=== PATIENT | female | born 1990 | race Caucasian/White ===

== ENCOUNTER 2016-04-07 06:00 | Day surgery (SDC) | payer MEDICAID ==
[2016-04-06 19:33] LABS: HCG,QUAL RESULT NEGATIVE (NEGATIVE)
[~2016-04-07] VITALS: Ht 172.7 cm; Wt 77.1 kg
[2016-04-07 06:28] VITALS: O2SAT 98
[2016-04-07] MEDS ORDERED: ONDANSETRON HCL 4 MG/2 ML VIAL IVP ONE (07:25)
[2016-04-07] MEDS ORDERED: DEXAMETHASONE SOD PHOSPHATE 4 MG/ML VIAL IVP ONE (07:25)
[2016-04-07] MEDS ORDERED: MIDAZOLAM HCL 5 MG/5 ML VIAL IVP ONE (07:25)
[2016-04-07] MEDS ORDERED: fentaNYL CITRATE 250 MCG/5 ML AMP IV ONE (07:25)
[2016-04-07] MEDS ORDERED: PROPOFOL 200MG/ 20ML VIAL (DIPRIVAN) IV ONE (07:25)
[2016-04-07] MEDS ORDERED: ROCURONIUM BROMIDE 10 MG/ML (ZEMURON) IV ONE (07:25)
[2016-04-07] MEDS ORDERED: BUPIVACAINE /EPINEPHRINE/PF 0.25% 30 ML VIAL INJ ONE (07:25)
[2016-04-07] MEDS ORDERED: SEVOFLURANE 15 MIN GAS INH ONE (07:25)
[2016-04-07] MEDS ORDERED: GLYCOPYRROLATE 0.2 MG/ML VIAL IJ ONE (07:25)
[2016-04-07] MEDS ORDERED: NS IRRIG SOLN 1000 ML IR ONE (07:25)
[2016-04-07] MEDS ORDERED: NEOSTIGMINE METHYLSULFATE 1 MG/ML, 10 ML VIAL IVP ONE (07:25)
[2016-04-07] MEDS ORDERED: LR 1,000 ML IV SCH (08:03)
[2016-04-07] MEDS ORDERED: MORPHINE 4 MG/ML INJ. SYRINGE IVP PRN ×3 (08:15)
[2016-04-07] MEDS ORDERED: METOCLOPRAMIDE HCL 10 MG/2 ML VIAL IVP PRN (08:15)
[2016-04-07] MEDS ORDERED: MORPHINE SULFATE 10 MG/ML VIAL ONE (09:35)
[2016-04-07 09:39] VITALS: BP 108/61; PULSE 75; RESP 16
== END 2016-04-07 11:07 | disposition home or self-care (01) ==
LOC: SMU 06:00 → SDS 06:00
PROVIDERS: ATTEND Otolaryngology
DX: J35.03 Chronic tonsillitis and adenoiditis (principal); R13.10 Dysphagia, unspecified
CPT/HCPCS: 42821; 84703; 88304; J1100; J2250; J2270; J2405; J2704; J2710; J3010; J3490 ×2